=== PATIENT | male | born 1985 | race Caucasian/White ===

== ENCOUNTER → 2020-08-23 | Outpatient (CLI) | payer OTHER ==
[~2020-08-23] MED LIST: VICODIN ES 7501 TAB PO
== END | disposition home or self-care (01) ==
LOC: US 07:30
PROVIDERS: ATTEND Nurse Practitioner Family
DX: K76.0 Fatty (change of) liver, not elsewhere classified (principal)

== ENCOUNTER → 2021-04-23 | Outpatient (CLI) | payer OTHER | LOC: COVID19 17:22 | PROVIDERS: ATTEND Internal Medicine | DX: U07.1 COVID-19 (principal) ==

== ENCOUNTER → 2021-07-31 | Outpatient (CLI) | payer OTHER | END | disposition home or self-care (01) | LOC: RAD 16:21 | PROVIDERS: ATTEND Family Medicine | DX: S92.354A Nondisplaced fracture of fifth metatarsal bone, right foot, initial encounter for closed fracture (principal); X58.XXXA Exposure to other specified factors, initial encounter; Y93.89 Activity, other specified; Y92.89 Other specified places as the place of occurrence of the external cause; Y99.8 Other external cause status ==

== ENCOUNTER → 2022-02-12 | Outpatient (CLI) | payer OTHER ==
[2022-02-12 11:30] LABS: BILIRUBIN Negative (Negative); BLOOD Negative (Negative); CLARITY Clear (Clear); COLOR Yellow (Yellow); GLUCOSE Negative (Negative); KETONE Negative (Negative); LEUKO ESTERASE Negative (Negative); NITRITE Negative (Negative); PH 7.5 (4.5-8.0); SPECIFIC GRAVITY 1.015 (1.001-1.030); UROBILINOGEN 0.2 E.U./dl (0.0-1.0)
[2022-02-12 11:31] LABS: BASO # 0.1 10*3/uL (0.0-0.1); BASO % 0.6 % (0.0-1.0); EOS # 0.2 10*3/uL (0.0-0.4); EOS % 2.2 % (1.0-4.0); HEMATOCRIT 41.1 % (42.0-52.0); LYMPH # 1.9 10*3/uL (1.3-4.4); LYMPH % 17.1 % (27.0-41.0); MEAN CORPUSCULAR HGB 28.9 pg (27.0-31.0); MEAN CORPUSCULAR HGB CONC 33.6 g/dl (33.0-37.0); MEAN PLATELET VOLUME 9.2 fl (9.6-12.3); MONO % 9.1 % (3.0-9.0); NEUT # 7.7 10*3/uL (2.3-7.9); NEUT % 69.9 % (47.0-73.0); PLATELET COUNT AUTOMATED 344 10*3/uL (130-400); RED BLOOD COUNT 4.78 10*6/uL (4.50-5.90); RED CELL DISTRI WIDTH 12.6 % (0-14.5); RETICULOCYTE % 1.79 % (0.50-2.50)
[2022-02-12 11:48] LABS: ALKALINE PHOSPHATASE 102 U/L (45-117); BUN 12 mg/dl (7-24); CHLORIDE 108 mmol/L (98-107); CHOLESTEROL 178 mg/dL (<200); CREATININE 0.77 mg/dL (0.70-1.30); GAMMA GLUTAMYL TRANSPEPTIDASE 136 U/L (15-85); IRON 78 ug/dL (65-175); LDL CHOLESTEROL 112 mg/dL (9-159); SGOT/AST 23 IU/L (3-35); SGPT/ALT 94 U/L (12-78); SODIUM 140 mmol/L (136-145); T3 UPTAKE 34 % (31-39); THYROXINE (T4) TOTAL 10.9 ug/dl (4.5-12.1); TOTAL PROTEIN 7.2 gm/dL (6.4-8.2); TRIGLYCERIDES 155 mg/dl (<150); URIC ACID 5.2 mg/dL (3.5-7.2)
[2022-02-12 12:07] LABS: EPITHELIAL CELLS 0-2; RBC 0-2 rbc/hpf (0-2); WBC 0-2 wbc/hpf (0-5)
[2022-02-12 12:38] LABS: FERRITIN 306.3 ng/mL (22.0-322.0); VITAMIN D, 25-HYDROXY 26.6 ng/mL (30-100)
[2022-02-13 04:06] LABS: RHEUMATOID FACTOR <10.0 IU/mL (<14.0)
[2022-02-13 15:07] LABS: ANTI-DSDNA ANTIBODIES <1 IU/mL (0-9)
== END | disposition home or self-care (01) ==
LOC: LAB 10:54
PROVIDERS: ATTEND Family Medicine
DX: E78.5 Hyperlipidemia, unspecified (principal); E55.9 Vitamin D deficiency, unspecified; R79.89 Other specified abnormal findings of blood chemistry; R53.83 Other fatigue; R74.8 Abnormal levels of other serum enzymes